=== PATIENT | female | born 1960 | race Two or more races ===

== ENCOUNTER 2025-03-19 14:08 | Outpatient (CLI) | payer MEDICARE ==
[2025-03-19 14:44] LABS: Hematocrit 41.6 % (36.0-46.0); Hemoglobin 14.5 g/dL (12.2-16.2); Mean Corpuscular Hemoglobin 29.8 pg (28.0-32.0); Mean Corpuscular Volume 85.2 fL (80.0-100.0); Nucleated Red Blood Cells % 0.0 %
[2025-03-19 15:52] LABS: Alanine Aminotransferase 25 U/L (7-40); Albumin 4.6 g/dL (3.2-4.8); BUN/Creatinine Ratio 12.5 (10.0-20.0); Blood Urea Nitrogen 10 mg/dL (9-23); Calcium 9.4 mg/dL (8.7-10.4); Chloride 100 mmol/L (98-107); Magnesium 2.0 mg/dL (1.6-2.6); Potassium 3.8 mmol/L (3.5-5.1); Sodium 140 mmol/L (136-145); Total Protein 7.3 g/dL (5.7-8.2)
[2025-03-19 15:53] LABS: Anion Gap 12 (5-15); Bilirubin, Total 0.7 mg/dL (0.2-1.0); Carbon Dioxide 28 mmol/L (20-31); Cholesterol 156 mg/dL (< 200); Free T4 (Free Thyroxine) 0.97 ng/dL (0.89-1.76); HDL Cholesterol 41 mg/dL (40-59)
[2025-03-19 15:54] LABS: Urine Protein, UAD Negative (Negative)
[2025-03-19 16:10] LABS: Alkaline Phosphatase 154 U/L (46-116); Glucose 118 mg/dL (74-106); Microalb/Creat Ratio, Urine < 3.0; Triglycerides 220 mg/dL (< 150)
== END 2025-03-19 17:00 | disposition home or self-care (01) ==
LOC: LAB 14:08
PROVIDERS: ATTEND Internal Medicine
DX: I10 Essential (primary) hypertension (principal); E11.9 Type 2 diabetes mellitus without complications
CPT/HCPCS: 36415; 80053; 80061; 81001; 82043; 82570; 82607; 83735; 84439; 84443; 85025; 85652